=== PATIENT | male | born 1995 | race Caucasian/White ===

== ENCOUNTER → 2016-03-02 | Day surgery (SDC) | payer BC, OTHER ==
[2016-03-01 12:00] VITALS: Ht 170.2 cm; Wt 67.3 kg
--- NOTE | 2016-03-01 16:47 | HISTORY & PHYSICAL EXAMINATION ---
DATE OF ADMISSION: 03/02/2016 ATTENDING PHYSICIAN: Dr. Silvestre Moreland. CHIEF COMPLAINT: Right shoulder pain. HISTORY OF PRESENT ILLNESS: This 20-year-old male presents to clinic today for his preoperative history and physical. The patient complains of intermittent right shoulder pain since early January after injuring it during a wrestling match. The patient states that he was doing rehab with his customer service trainer and was improving significantly but this past Sunday he was placed in an awkward position, experienced a pinching sensation with onset increased weakness in the right upper extremity. The patient was evaluated by Dr. Moreland at the athletic training room and he recommended surgical intervention to correct this issue. The patient denies any numbness or tingling in his right upper extremity, any significant swelling and discoloration. PAST SURGICAL HISTORY: Right foot Lisfranc fracture repair. PAST MEDICAL HISTORY: Contact dermatitis, insomnia, migraines and a history of scabies. FAMILY HISTORY: Maternal grandfather - myocardial infarction. Mother - hyperlipidemia and hypertension. Maternal grandfather and grandmother - type 2 diabetes. ALLERGIES: The patient has no medication allergies. CURRENT MEDICATIONS: The patient is currently not taking any medication. SOCIAL HISTORY: The patient denies a history of alcohol, tobacco or illicit drug use. PHYSICAL EXAMINATION: SKIN: The patient's skin is normal in appearance. No open skin lesions or discharge. EYES: Pupils are equal and reactive to light and accommodation. Extraocular movements are intact. EARS: Canals are clear of cerumen. Tympanic membranes are intact bilaterally with no bulging or effusion. NOSE: Turbinates pink and boggy in appearance. No appreciable rhinorrhea. THROAT: Posterior oropharynx is clear with absence of edema, erythema or exudate. CARDIOVASCULAR: The patient has a regular rate and rhythm. No murmurs or gallops appreciated. LUNGS: Auscultation of the lung chester reveals clear breath sounds throughout with no wheezing, rales or rhonchi. ABDOMEN: Nonobese, nondistended, nontender with normoactive bowel sounds. EXTREMITIES: Right shoulder: The patient is able to forward flex and abduct to 90 degrees with applied resistance during 90 degrees of abduction. The patient does have appreciable weakness in the right upper extremity. He has moderate tenderness to palpation over the glenohumeral groove, but no edema, erythema, ecchymosis, warmth or palpable bony deformity. The patient has a positive external rotation test, positive Blair's test with thumbs pointed up and down 0 and 30 degrees. A positive empty can test, a positive cross arm test, a positive load shift test, a positive Neer impingement test. In the right upper extremity, he has a negative internal rotation test, negative Askew and Rich impingement test, negative subscapularis lift off test, negative sulcus sign, and a negative apprehension and relocation test. The patient is able to reach terminal flexion and extension of his right elbow, he has full range of motion of his right wrist, good dexterity of his fingers and equal fuller brush man strength bilaterally. He is neurovascularly intact in right upper extremity. His peripheral pulses are palpable. His capillary refill is brisk. All other extremities are normal in appearance with appropriate range of motion and strength. NEUROLOGICAL: Cranial nerves II-XII are intact with no motor or sensory deficit noted. PSYCHOLOGICAL AND GENERAL: The patient is alert and oriented x3 with proper grooming and hygiene. DIAGNOSIS: Right shoulder labral tear. PROCEDURE: Arthroscopic right shoulder labral repair versus debridement. MRI RESULTS: No bony edema. Labrum looks intact except for the superior labrum where there is slightly posterior with some amorphous signal. There is a small amount of fluid underneath the labrum, the biceps appears normal. There is no appreciable Hill-Sachs lesion. No rotator cuff injury and arthrogram was positive. PLAN: The patient is scheduled to undergo this procedure tomorrow 03/02/[address] Silvestre Moreland at the [facility]. Risks, complications of the surgery such as infection, bleeding, pain, scarring, nerve and blood vessel damage, weakness, wound problems, stiffness, incomplete relief of symptoms, heart attack, stroke, , hardware failure, malunion, nonunion and arthritis were explained to the patient and he understands and agrees. Written consent to perform the procedure was obtained. At this point, there is no indication for any preoperative medical clearance and testing. The patient was given a prescription for [place] for postoperative pain control. PDMP was checked and no red flags were raised for prescribing this patient narcotic medication. The patient will be scheduled for a 2-week followup with Dr. Moreland at [facility]. He will do his postoperative physical therapy with his racehorse trainer on campus. The patient verbalized understanding of all information provided today, thanked us for the care he received in our clinic. He states that if he has any other questions or concerns that should arise prior to surgery tomorrow, he will contact Dr. Moreland. LUIS ARMANDO
[~2016-03-02] VITALS: Ht 170.2 cm; Wt 67.3 kg
[~2016-03-02] MED LIST: ATROPINE SULFATE 0.1 MG/ML 5ML SYR IV PRN; CEFAZOLIN 1000MG/55 ML D5W IV SCH; DEXAMETHASONE SOD INJ 4 MG/ML VIAL ONE; EpHEDrine SULFATE INJ 50 MG/ML AMP IV PRN; EpINEphrine INJ 1MG/ML AMP 1 MG/ML AMP ONE; FENTANYL CITRATE INJ 50 MCG/1 ML 2 ML VIAL ONE; HYDR-5688 PO; HYDROCODONE/ACETAMOPHEN 5/325MG TAB PO PRN; LACTATED RINGER'S 1000ML 1,000 ML IV SCH; LIDOCAINE HCL 1% MPF 2 ML VIAL ONE; LIDOCAINE HCL 2% 2 ML VIAL (20MG/ML) ONE; LIDOCAINE/EPINEPHRINE 1% INJ 50 ML VIAL ONE; MIDAZOLAM HCL 1 MG/ML 2ML VIAL ONE; MoRPHine SULFATE 2 MG/ML CARP IV PRN; MoRPHine SULFATE 4 MG/ML 1 ML CARP\\VIAL IV PRN; ONDANSETRON INJ 2 MG/ML 2 ML VIAL IV PRN; ONDANSETRON INJ 2 MG/ML 2 ML VIAL ONE; PROPOFOL IV EMULSION 10 MG/ML 20 ML VIAL IV ONE; ROCURONIUM BROMIDE 10 MG/ML 5 ML VIAL ONE; ROPIVACAINE 0.5% 5 MG/ML 30 ML VIAL ONE; SODIUM CHLORIDE 0.9% 1000ML 1,000 ML IV SCH; SUCCINYLCHOLINE CHLORIDE 20 MG/ML 10 ML VIAL IV ONE
--- NOTE | 2016-03-02 06:47 | History & Physical Bridge Note ---
H&P Re-Evaluation Bridge Note: I have examined the patient, reviewed the History & Physical and in the interval since the performance of the History & Physical I have noted the following changes of clinical significance: No changes noted
--- NOTE | 2016-03-02 11:47 | [facility] Post Operative Brief Note ---
Immediate Operative Summary Operative Date Mar 02, 2016. Pre-Operative Diagnosis Right Shoulder Labral Tear Post-Operative Diagnosis Same Procedure(s) Performed Right Shoulder Arthroscopic Labral Debridement and SLAP Lesion Repair Surgeon Dr. Moreland Rollway Worker Surgeon(s) Dr. Aliyah Witt Estimated Blood Loss Minimal Findings ruptured type IV SLAP lesion Specimens None Drains 0 Anesthesia general with block Complication(s) None Disposition Recovery Room / PACU
--- NOTE | 2016-03-02 11:49 | Discharge Instructions-SurgCtr ---
Discharge Instructions Visit Reason for Visit: Right Shoulder Labral Tear Discharge Discharge Diagnosis / Problem: Right shoulder labrum repair Discharge Goals Goal(s): Decrease discomfort, Improve function, Increase independence Activity Recommendations Activity Limitations: per Instructions/Follow-up section Anesthesia . Post Anesthesia Instructions: If you have had General Anesthesia or IV Sedation: * Do not drive today. * Resume driving when surgeon permits. * Do not make important decisions or sign legal documents today. * Call surgeon for: 1. Temperature elevations greater than 101 degrees F. 2. Uncontrollable pain. 3. Excessive bleeding. 4. Persistent nausea and vomiting. 5. Medication intolerance (nausea, vomiting or rash). * For nausea and vomiting use only clear liquids such as: tea, soda, bouillon until nausea subsides, then gradually increase diet as tolerated. * If you have any concerns or questions, call your surgeon's office. If physician is unavailable and it is an emergency, call 911 or go to the nearest emergency room. . Instructions / Follow-Up Instructions / Follow-Up ACTIVITY RECOMMENDATIONS: * Keep arm in sling * Minimize activity after surgery. * No excessive walking, jogging, sports or laboring. * Return to activity is individualized depending on the patient and type of surgery. * Driving is not permitted until at least your first post operative visit. Please ask your doctor when it is safe to resume driving. * Expect increased discomfort with increased activity. Continue to ice the shoulder as needed. SCHOOL/WORK RECOMMENDATIONS: * You may return to sedentary work or school when you are feeling more comfortable. This is usually 3-7 days after surgery. MEDICATIONS: * You will have a prescription for pain medication and an anti-inflammatory medication after surgery. * Use the pain medication for severe pain and the anti-inflammatory for less severe pain. Once the pain medication has run out, try to use the anti-inflammatory medication. If this is not effective, contact the office for assistance. * The pain medication may cause nausea, constipation and drowsiness. You should see how they affect you before driving or similar activity. * The anti-inflammatory medication may cause stomach upset and bleeding. If this occurs let your doctor know immediately . * Take a stool softener like Colace or a laxative like Senokot to prevent constipation. DIET: * Resume previous diet. SPECIAL CARE: ICE: You have the option of an ice cooler, gel packs or ice bags. * If you have an ice cooler, refer to the instructions for that device. The ice cooler may be used continuously. * If you do not have an ice cooler, you will need to use ice bags or gel packs. Do not apply ice directly to the skin. Use a thin dressing or sera shirt between the skin and ice bag. Apply ice for 20-30 minutes and repeat every 2-4 hours. This is especially important for the first 7-10 days after surgery. Once the pain improves, use ice as needed. ELEVATION: * You may be more comfortable sleeping in an upright position. Use the sling to elevate your arm. DRESSING: * Your dressing will be changed at your first therapy appointment approximately 4-5 days after surgery. Band-aids, tape strips or gauze may be applied. You may then change your dressing daily. * Reapply dressing followed by the EBIce cooling pad (if chosen) and then the sling. * Always wash your hands prior to touching the incision area. * Once the stitches are removed, you may leave the wound open to air or cover with gauze. * Expect some bloody drainage for the first few days after surgery. * Leave the tape strips, if present, in place for 5-7 days. * Band-aids and gauze may be changed daily. * There may be a gauze pad in your armpit area. This can be changed daily or replaced by a dry washcloth. SLING/BRACE: * You will need to use a sling or brace after surgery. The length of time the sling is used is dependent upon the type of surgery performed. BATHING: * You may shower or sponge-bathe immediately after surgery. The post operative shoulder dressing is mostly water-tight. You may shower right over this dressing, but be reasonably careful not to get the gauze or incision wet. * Once the dressing has been changed on the fourth or fifth day after surgery, you may shower and get the incision wet. * Wash with regular soap and water. * Do not bathe (submerge the incision), soak, swim or use a hot tub until the incision is completely healed over with normal skin and the doctor has given the OK to proceed. * There is no need to apply any ointments, powders or salves to your incision. * Do not apply alcohol or hydrogen peroxide directly to the incision. * Diluted peroxide (50:50 mixture with sterile saline) may be used to clean dried blood from around the incision area. THERAPY: * You will begin therapy four or five days after surgery. * Organized therapy with the therapist is important for the first 2-4 months after surgery depending on the type of procedure. During that time you will attend therapy 1-3 times per week. * You will also need to do daily exercises for range of motion and strength as instructed. * Patients who have a Capsular Shift Procedure will need to abide by temporary range of motion limitations. * Patients having Rotator Cuff Surgery are not allowed to actively lift their arms until 4-6 weeks after surgery. * Please check with your doctor regarding appropriate motion restrictions. FOLLOW UP VISIT: * Follow up with Dr. Moreland 2 weeks after surgery at training room Procedures Procedures Performed: Right Shoulder Arthroscopic Labral Debridement and SLAP Lesion Repair Pending Studies Studies pending at discharge: no Medical Emergencies . Who to Call and When: Medical Emergencies: If at any time you feel your situation is an emergency, please call 911 immediately. . Non-Emergent Contact Non-Emergency issues call your: Surgeon . . "Provider Documentation" section prepared by Anastacio Witt.
--- NOTE | 2016-03-02 11:52 | [facility] Operative Report ---
Operative Report Operative Date Mar 02, 2016. Pre-Operative Diagnosis Right Shoulder Labral Tear Post-Operative Diagnosis Same Procedure(s) Performed Right Shoulder Arthroscopic Labral Debridement and SLAP Lesion Repair Surgeon Dr. Moreland Air Traffic Supervisor Surgeon(s) Dr. Aliyah Witt Estimated Blood Loss Minimal Findings Labral tear Specimens None Complication(s) None Disposition PCU I attest to the content of the Intraoperative Record and any orders documented therein. Any exceptions are noted below.
[2016-03-02] MEDS: FENTANYL CITRATE INJ 50 MCG/1 ML 2 ML VIAL IV PRN ×3 (12:09→12:20)
--- NOTE | 2016-03-02 12:36 | OPERATIVE REPORT ---
DATE OF OPERATION: 03/02/2016 PREOPERATIVE DIAGNOSIS: Right shoulder labral tear. POSTOPERATIVE DIAGNOSIS: Probable ruptured type 4 SLAP lesion. PROCEDURE: Right shoulder arthroscopy with labral debridement and repair of type 2 SLAP lesion. SURGEON: Dr. Silvestre Moreland. MAINTENANCE MECHANIC 2ND SHIFT: Kaya, fellow. No PA available. ANESTHESIA: General with interscalene block. 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 Conservative treatment has not resulted in pain free function including therapy, rest and a cortisone shot. MRI suggests a superior labral tear. He has not dislocated the shoulder. PROCEDURE IN DETAIL: Informed consent was obtained. The patient was identified as Mark Anthony Sotomayor. He identified the operative site as the right shoulder. I marked with my initials. A preop surgical time-out was performed. A preop dose of IV antibiotics was given. He was taken to the operating room and positioned supine on the operating room table. A general anesthetic and interscalene block were administered. He was positioned decubitus with the right side up. Bony prominences were inspected and padded. An axillary roll was inserted. The torso was secured to the table with tape. The Qustodio shoulder tower was utilized for distraction. The right upper extremity was prepped and draped in the usual sterile fashion. DVT prophylaxis was not indicated. Preoperative examination showed full unrestricted range of motion, equal to the opposite side with a grade 1 sulcus. He had grade 1 anterior translation equal bilaterally and negative jerk test. The shoulder could not be dislocated. He had a half grade of increased posterior laxity on the right shoulder compared to the left, but negative jerk test. A posterior soft spot viewing portal was established followed by an anterior mid glenoid working portal just above the subscapularis using the outside-in technique. Immediately upon entering the shoulder, it was noted that there was significant injury to the superior posterior labrum. There were 2 large flaps of tissue, 1 in the front and 1 in the back with evidence of injury of the superior labrum and biceps insertion. The proximal biceps tendon also showed some evidence of injury. This appeared to be a type 4 SLAP lesion with a type 2 SLAP lesion concomitant and a rupture of the bucket tear. The anterior labrum tear was debrided. The biceps tendon was normal. The diameter of the biceps was not significantly compromised; however, the biceps attachment to the superior glenoid, mostly directly superior and posterosuperior from 1 to 1030 showed evidence of injury or detachment. The cartilage surfaces were normal. The anterior labrum from 1 o'clock inferior was normal without evidence of injury. The subscapularis middle and anterior inferior glenohumeral ligaments were normal. There was a small labral flap inferiorly, which was debrided. There was no detachment. The rotator cuff was intact circumferentially. There was a normal, but somewhat a large bare area and no Hill-Sachs lesion was noted. There were no loose bodies. There was no humeral avulsion of the glenohumeral ligaments. The subscapularis recess was normal. The scope was placed anterior to visualize the posterior structures. The large posterior labral flap, which was torn off to about its 8 o'clock position, was debrided. The entire posterior labrum upto the 10:30 o'clock position, although it had partially torn within the substance, it was not torn away from the glenoid. The posterior cuff and capsule appeared to be normal. The superior labrum was repaired using an elevator, shaver and rasp. An anterosuperior cannula was inserted just in the posterior margin of the rotator interval 6 mm in diameter. The anterior cannula was 8.25 mm. After preparing the superior glenoid down to a bed of bone, 3 anchors were inserted. The first was located at the 11 o'clock position. A 3.0 mm PEEK SutureTak. The Sisteer suture passer was utilized. The sutures were shuttled in a simple fashion and tied with modified [place] knot backed up with reverse half inches on alternating posts. A second anchor was placed at the 12:30 o'clock position, just anterior to the biceps, a 3.0 mm PEEK SutureTak passed and tied in a likewise fashion. I was not completely satisfied with the central portion and I therefore went ahead through the anterosuperior cannula and inserted 2.4-mm BioComposite SutureTak anchor. This was then passed up in a horizontal mattress fashion through the superior labrum, so not to over constrain the biceps by grabbing a large piece of the tendon and pulling it down. So, the horizontal mattress was thrown and then tied in a likewise fashion, which resulted in an excellent secure fixation of the entire superior labrum without over constraining or tightening the biceps. The shaver was run through the shoulder to picking belt operator loose debris. Instruments were removed. The portals were closed with 4-0 nylon. Soft sterile dressing was applied with an ABD in the armpit along with an UltraSling. During the procedure, 10 pounds of longitudinal traction and the minimal lateral distraction needed to visualize the joint was performed. This was relieved at the conclusion of the operation. The patient was awakened from anesthesia without difficulty and taken to recovery in stable condition. There were no specimens or complications. Counts were correct at the end of case. Blood loss was minimal. At the conclusion of the operation, I spoke to the patient's friend and informed them of my findings. He will be rehabilitated according to the type 2 SLAP lesion rehab protocol. I attest to the content of the Intraoperative Record and any orders documented therein. Any exceptions are noted below. LUIS ARMANDO
[2016-03-02 12:54] VITALS: TEMP 36.4
[2016-03-02 13:30] VITALS: BP 111/71; PULSE 62; O2SAT 100
--- NOTE | 2016-03-02 13:37 | Anesthesia Progress Nt - [facility] ---
Anesthesia Post Op Note Date & Time Mar 02, 2016 at 13:36 Vital Signs Pain Intensity: 3 Vital Signs Past 12 Hours Date Time Temp Pulse Resp B/P Pulse Ox O2 Delivery O2 Flow Rate FiO2 03/02/16 13:21 55 16 117/73 100 Room Air 03/02/16 12:54 36.4 53 14 119/76 100 Room Air 03/02/16 12:30 67 12 03/02/16 12:30 65 12 100 03/02/16 12:29 36.5 75 14 136/82 99 Room Air 03/02/16 12:28 136/82 03/02/16 12:25 67 15 03/02/16 12:25 66 15 100 03/02/16 12:23 129/77 03/02/16 12:20 62 10 99 03/02/16 12:20 64 10 03/02/16 12:18 119/72 03/02/16 12:15 61 13 100 03/02/16 12:15 58 13 03/02/16 12:13 131/83 03/02/16 12:10 82 15 98 03/02/16 12:10 72 15 03/02/16 12:08 131/79 03/02/16 12:05 66 14 03/02/16 12:05 65 14 100 03/02/16 12:03 126/77 03/02/16 12:00 69 12 100 03/02/16 12:00 68 12 03/02/16 11:59 62 12 03/02/16 11:59 61 12 100 03/02/16 11:58 127/77 03/02/16 11:54 78 7 03/02/16 11:54 82 7 100 03/02/16 11:53 129/76 03/02/16 11:49 77 13 100 03/02/16 11:49 75 13 03/02/16 11:48 123/69 03/02/16 11:44 88 14 03/02/16 11:44 89 14 100 03/02/16 11:44 36.4 83 12 129/70 100 Diffusion Mask 6 03/02/16 11:43 123/71 03/02/16 08:13 101/69 03/02/16 08:11 57 11 03/02/16 08:11 59 11 100 03/02/16 08:08 113/64 03/02/16 08:06 53 15 03/02/16 08:06 54 15 100 03/02/16 08:03 107/65 03/02/16 08:01 52 14 100 03/02/16 08:01 52 14 03/02/16 07:58 108/75 03/02/16 07:56 58 0 99 03/02/16 07:56 58 0 03/02/16 07:54 108/62 03/02/16 07:51 51 11 03/02/16 07:51 51 11 98 03/02/16 07:48 102/74 03/02/16 07:46 63 03/02/16 06:42 36.6 68 16 117/69 100 Room Air Notes Mental Status: alert / awake / arousable, participated in evaluation Pt Amnestic to Procedure: Yes Nausea / Vomiting: adequately controlled Pain: adequately controlled Airway Patency, RR, SpO2: stable & adequate BP & HR: stable & adequate Hydration State: stable & adequate Anesthetic Complications: no major complications apparent
== END | disposition home or self-care (01) ==
LOC: X.SURG 06:23
PROVIDERS: ATTEND Physical Medicine & Rehabilitation Sports Medicine
DX: S43.431A Superior glenoid labrum lesion of right shoulder, initial encounter (principal); Y93.72 Activity, wrestling; Y92.89 Other specified places as the place of occurrence of the external cause

== ENCOUNTER → 2017-02-14 | Outpatient (CLI) | payer BC, OTHER ==
[~2017-02-14] MED LIST changes: -ATROPINE SULFATE 0.1 MG/ML 5ML SYR IV PRN; -CEFAZOLIN 1000MG/55 ML D5W IV SCH; -DEXAMETHASONE SOD INJ 4 MG/ML VIAL ONE; -EpHEDrine SULFATE INJ 50 MG/ML AMP IV PRN; -EpINEphrine INJ 1MG/ML AMP 1 MG/ML AMP ONE; -FENTANYL CITRATE INJ 50 MCG/1 ML 2 ML VIAL ONE; -HYDROCODONE/ACETAMOPHEN 5/325MG TAB PO PRN; -LACTATED RINGER'S 1000ML 1,000 ML IV SCH; -LIDOCAINE HCL 1% MPF 2 ML VIAL ONE; -LIDOCAINE HCL 2% 2 ML VIAL (20MG/ML) ONE; -LIDOCAINE/EPINEPHRINE 1% INJ 50 ML VIAL ONE; -MIDAZOLAM HCL 1 MG/ML 2ML VIAL ONE; -MoRPHine SULFATE 2 MG/ML CARP IV PRN; -MoRPHine SULFATE 4 MG/ML 1 ML CARP\\VIAL IV PRN; -ONDANSETRON INJ 2 MG/ML 2 ML VIAL IV PRN; -ONDANSETRON INJ 2 MG/ML 2 ML VIAL ONE; -PROPOFOL IV EMULSION 10 MG/ML 20 ML VIAL IV ONE; -ROCURONIUM BROMIDE 10 MG/ML 5 ML VIAL ONE; -ROPIVACAINE 0.5% 5 MG/ML 30 ML VIAL ONE; -SODIUM CHLORIDE 0.9% 1000ML 1,000 ML IV SCH; -SUCCINYLCHOLINE CHLORIDE 20 MG/ML 10 ML VIAL IV ONE
== END | disposition home or self-care (01) ==
LOC: C.RDSM 08:00
PROVIDERS: ATTEND Physical Medicine & Rehabilitation Sports Medicine
DX: M25.572 Pain in left ankle and joints of left foot (principal)

== ENCOUNTER → 2017-02-23 | Outpatient (CLI) | payer BC, OTHER | END | disposition home or self-care (01) | LOC: C.RDSM 07:53 | PROVIDERS: ATTEND Physical Medicine & Rehabilitation Sports Medicine | DX: S93.432A Sprain of tibiofibular ligament of left ankle, initial encounter (principal); X58.XXXA Exposure to other specified factors, initial encounter ==